=== PATIENT | male | born 1985 | race Caucasian/White ===

== ENCOUNTER 2020-01-22 07:14 | Emergency (ER) | payer OTHER ==
[~2020-01-22] VITALS: Ht 180.3 cm; Wt 63.5 kg
[2020-01-22] MEDS ORDERED: DUI500 PO (08:14)
== END 2020-01-22 08:27 | disposition home or self-care (01) ==
LOC: ER 07:14
DX: S61.250A Open bite of right index finger without damage to nail, initial encounter (principal); S61.052A Open bite of left thumb without damage to nail, initial encounter; W55.01XA Bitten by cat, initial encounter; Y93.89 Activity, other specified; Y92.89 Other specified places as the place of occurrence of the external cause; Y99.8 Other external cause status